=== PATIENT | female | born 1990 | race Caucasian/White ===

== ENCOUNTER 2017-10-09 05:22 | Emergency (ER) | payer OTHER ==
[~2017-10-09] VITALS: Ht 154.9 cm; Wt 61.2 kg
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
--- NOTE | 2017-10-09 05:50 | NUR ---
PT SPEAKING WITH JASON VILLANUEVA TO FILE REPORT.
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
--- NOTE | 2017-10-09 06:19 | NUR ---
CHAPERONED MD AT BEDSIDE FOR EXAM.
--- NOTE | 2017-10-09 06:57 | NUR ---
[employer] ARRIVED TO TAKE STATEMENT FROM PT.
--- NOTE | 2017-10-09 07:05 | NUR ---
[facility] [employer] called. Spoke with [employer] [phone]
--- NOTE | 2017-10-09 07:18 | NUR ---
REPORT GIVEN TO JOSSIE OSBORNE FOR [facility].
--- NOTE | 2017-10-09 08:45 | NUR ---
PT D/C'D TO [facility]. STABLE CONDITION.
[2017-10-09 08:46] VITALS: BP 128/86
== END 2017-10-09 08:46 | disposition home or self-care (01) ==
LOC: ER 05:25
DX: S40.012A Contusion of left shoulder, initial encounter (principal); S20.02XA Contusion of left breast, initial encounter; S10.83XA Contusion of other specified part of neck, initial encounter; T74.21XA Adult sexual abuse, confirmed, initial encounter; Y93.89 Activity, other specified; Y92.89 Other specified places as the place of occurrence of the external cause; Y99.8 Other external cause status
CPT/HCPCS: 99284; A4606; Z7610